=== PATIENT | female | born 1950 | race American Indian/Alaskan Native ===

== ENCOUNTER 2016-08-03 06:15 | Day surgery (SDC) | payer OTHER ==
[2016-07-26 12:07] VITALS: BMI 27.6
[~2016-08-03 06:15] MED LIST: Lactated Ringer's 500 ML IV ONE; Phenylephrine 2.5% Opht Soln OD SCH; Tropicamide 1% Opht SOLUTION OD SCH
[2016-08-03] MEDS ORDERED: Lactated Ringer's 1,000 ML IV ONE (07:00)
[2016-08-03] MEDS ORDERED: Povidone Iodine Ophthalmic 5% Soln ONE (07:24)
[2016-08-03] MEDS ORDERED: Tetracaine 0.5% Ophth (OR ONLY) ONE (07:24)
[2016-08-03] MEDS ORDERED: Chondroitin/Hyaluronate Opth Syringe KIT (0.55 ml-0.5 ml) IO ONE (07:25)
[2016-08-03] MEDS ORDERED: Lidocaine 2% Inj (20ml) ONE (07:25)
[2016-08-03] MEDS ORDERED: Hyaluronidase Human, Recombi 150 U/ML VIAL ONE (07:25)
[2016-08-03] MEDS ORDERED: Midazolam 2 MG/2 ML VIAL ONE (07:52)
[2016-08-03] MEDS ORDERED: Propofol 10 mg/ml Inj (20 ML) ONE (08:13)
[2016-08-03] MEDS: Carbachol 0.01% IO ONE ×2 (08:18→08:33)
[2016-08-03] MEDS: Tobramycin/Dexamethasone OPHT OINT ONE ×2 (08:18→08:34)
[2016-08-03 10:38] VITALS: BP 157/61; PULSE 56; RESP 16; TEMP 97.4; O2SAT 98
--- NOTE | 2016-08-04 10:06 | OP ---
PROCEDURE DATE: 08/03/2016 PREOPERATIVE DIAGNOSIS: Nuclear mature cataract, right eye. POSTOPERATIVE DIAGNOSIS: Nuclear mature cataract, right eye. OPERATIVE PROCEDURE: Cataract extraction with lens implant. ATTENDING: Dr. Bro Layton ANESTHESIA: Retrobulbar block. COMPLICATIONS: None. PROCEDURE: The patient was brought to the operating room and properly identified. Anesthesia staff a dministered intravenous sedation and retrobulbar block was given to the surgical eye. The patient wa s then prepped and draped in the usual sterile fashion. Attention was turned to the surgical eye. A lid speculum was placed into interpalpebral fissure. Si tting temporally two paracentesis incisions were made. The anterior chamber was filled with viscoela stic and a triplanar clear corneal incision was made. Using a cystitome anterior capsular leaflet wa s created. Utrata forceps were used to create a continuous curvilinear capsulorrhexis. Balanced catherine t solution on a cannula was used to hydrodissect and hydrodelineate the lens. The lens was then phac oemulsified with no complications. Automated irrigation and aspiration was used to remove the cortex . Viscoelastic was used to deepen the anterior chamber. The lens was placed in the capsular bag. A utomated irrigation and aspiration was used to remove the viscoelastic. The anterior chamber was ivis led with Miochol. The wounds were hydrated with balanced salt solution. There was noted to be no le ak at the end of the case and the lens was well positioned. The lid speculum was removed. The eye w as given antibiotics and steroids and covered with a patch and shield. The patient was returned to [facility] recovery room in stable condition. Bro Layton MD cc: [phone] TT: 08/04/2016 10:06:15 en
== END 2016-08-03 10:15 | disposition home or self-care (01) ==
LOC: C.SDS 06:15
PROVIDERS: ATTEND Ophthalmology
DX: H25.11 Age-related nuclear cataract, right eye (principal)
CPT/HCPCS: 66984; 82948; J2250; J2704; J3010; J3470; J7120

== ENCOUNTER 2017-07-17 01:03 | Emergency (ER) | payer OTHER ==
[2017-07-17 01:04] VITALS: BMI 26.4
[2017-07-17 01:31] VITALS: O2SAT 100
[2017-07-17 02:00] LABS: BASO # 0.1 K/uL (0.0-0.2); BASO % 1.1 % (0.0-2.0); EOS # 0.2 K/uL (0.0-0.7); EOS % 1.8 % (0.0-4.0); HEMOGLOBIN 12.9 g/dL (11.0-16.0); LYMPH # 2.2 K/uL (1.0-4.3); LYMPH % 21.3 % (20.0-40.0); MEAN CELL VOLUME 83.8 fL (81.0-99.0); MEAN CORPUSCULAR HEMOGLOBIN 29.2 pg (27.0-31.0); MEAN CORPUSCULAR HGB CONC 34.8 g/dL (33.0-37.0); MEAN PLATELET VOLUME 10.6 fL (7.2-11.7); MONO % 9.4 % (0.0-10.0); NEUT # 6.8 K/uL (1.8-7.0); NEUT % 66.4 % (50.0-75.0); RBC 4.41 Mil/uL (3.80-5.20); RED CELL DISTRIBUTION WIDTH 13.9 % (11.5-14.5); WHITE BLOOD COUNT 10.3 K/uL (4.8-10.8)
--- NOTE | 2017-07-17 02:11 | C.PDOC ---
History Of Present Illness 67 y/o female with a history of migraines presents to the ED for a headache. Patient states the headache has lasted for several days along with intermittent chest pain. The headache feels like it's pounding associated with nausea and her eyes are bothered by light. She denies any recent fever, neck pain, focal weakness, visual disturbances, trouble with speech, or rashes. Of note, she saw her PMD today who gave her more blood pressure medication. PMD: Flo Hart Time Seen by Provider: 07/17/17 01:47 Chief Complaint (Nursing): Chest Pain History Per: Patient History/Exam Limitations: no limitations Onset/Duration Of Symptoms: Days Current Symptoms Are (Timing): Still Present Quality: "Pain" Recent travel outside of the [place]: No Past Medical History Vital Signs: Last Vital Signs Temp 98.4 F 07/17/17 04:38 Pulse 72 07/17/17 04:38 Resp 18 07/17/17 04:38 BP 142/74 07/17/17 04:38 Pulse Ox 100 07/17/17 04:38 - Medical History PMH: CHF, HTN, Hypercholesterolemia, Migraine Surgical History: No Surg Hx Family History: States: Unknown Family Hx - Social History Hx Tobacco Use: No Hx Alcohol Use: No Hx Substance Use: No - Immunization History Hx Influenza Vaccination: No Hx Pneumococcal Vaccination: No Review Of Systems Except As Marked, All Systems Reviewed And Found Negative. Physical Exam - Physical Exam Appears: No Acute Distress Skin: Normal Color, Warm, Dry Head: Atraumatic, Normacephalic Eye(s): bilateral: Normal Inspection, PERRL, EOMI Nose: Normal Throat: Normal Neck: Normal Cardiovascular: Rhythm Regular, No Murmur Respiratory: Normal Breath Sounds, No Decreased Breath Sounds Gastrointestinal/Abdominal: Normal Exam, Soft, No Tenderness Back: Normal Inspection, No CVA Tenderness, No Vertebral Tenderness Extremity: Normal ROM, No Pedal Edema, Capillary Refill (2+) Neurological/Psych: Oriented x3, Normal Motor, Normal Sensation, Other (2-12 nerves intact) Other Neurological Findings: No Other (no meningismus) ED Course And Treatment - Laboratory Results Result Diagrams: 07/17/17 01:50 07/17/17 01:50 ECG: Interpreted By Me, Viewed By Me ECG Rhythm: Sinus Rhythm (normal), Nonspecific Changes (ST changes) Interpretation Of ECG: left ventricular hypertrophy, no acute ischemia Rate From EC O2 Sat by Pulse Oximetry: 100 (RA) Pulse Ox Interpretation: Normal Medical Decision Making Medical Decision Making: Impression: Muscle tension headache. Will provide anti-nausea medication and analgesics. Initial Plan: * Head CT w/o contrast * EKG * Chest X-Ray * Toradol 30 mg IVP * Compazine [address] Results FINDINGS: Brain: Xtbi-en-jegckoot atrophy. No intracranial hemorrhage. No mass. Minimal encephalomalacia within right frontal region. Extensive decreased attenuation within periventricular/subcortical white matter. Probable chronic lacunar infarct about LEFT basal ganglia. No definite edema. Ventricles: No hydrocephalus. Bones/joints: No acute fracture. Soft tissues: Unremarkable. Vasculature: Atherosclerotic disease of intracranial arteries. Sinuses: No acute sinusitis. Mastoid air cells: No mastoid effusion. Orbits: Unremarkable as visualized. IMPRESSION: 1. Nonspecific white matter changes. Acute infarction may be CT occult within first 24 hours. If a focal deficit persists, consider followup CT or MRI for further evaluation. 2. Incidental/non-acute findings are described above. Scribe Attestation: Documented by Sybil Nichole acting as a scribe Crispin Ball MD. Scribe Attestation: All medical record entries made by the Scribe were at my direction and personally dictated by me. I have reviewed the chart and agree that the record accurately reflects my personal performance of the history, physical exam, medical decision making, and the department course for this patient. I have also personally directed, reviewed, and agree with the discharge instructions and disposition. Disposition - Disposition Referrals: [facility] [Outside] Disposition: HOME/ ROUTINE Disposition Time: 06:46 Condition: FAIR Prescriptions: Acetaminophen/Butalbital/Caf [Fioricet] 1 tab PO TID PRN #12 tab PRN Reason: Pain, Mild (1-3) Instructions: Tension Headache Forms: [facility] (Venezuelan) Print Language: DUTCH - Clinical Impression Clinical Impression: Tension headache
[2017-07-17 02:14] LABS: ALB/GLOB RATIO 1.2 (1.0-2.1); ALBUMIN 4.9 g/dL (3.5-5.0); CALCIUM 10.5 mg/dl (8.6-10.4)
[2017-07-17 02:26] LABS: CK-MB 0.77 ng/mL (0.0-3.38); TROPONIN I 0.032 ng/mL (0.00-0.120)
[2017-07-17 03:31] VITALS: RESP 18
--- NOTE | 2017-07-17 03:57 | CT ---
EXAM: CT Head Without Intravenous Contrast CLINICAL HISTORY: 67 years old, female; Pain; Headache; Patient HX: 04-02-17 images sent TECHNIQUE: Axial computed tomography images of the head/brain without intravenous contrast. All CT scans at this facility use one or more dose reduction techniques, viz.: automated exposure control; ma/kV adjustment per patient size (including targeted exams where dose is matched to indication; i.e. head); or iterative reconstruction technique. Coronal and sagittal reformatted images were created and reviewed. COMPARISON: CT - HEAD W/O CONTRAST 2017-04-02 08:08 FINDINGS: Brain: Rgcb-kq-bimsrnxx atrophy. No intracranial hemorrhage. No mass. Minimal encephalomalacia within right frontal region. Extensive decreased attenuation within periventricular/subcortical white matter. Probable chronic lacunar infarct about LEFT basal ganglia. No definite edema. Ventricles: No hydrocephalus. Bones/joints: No acute fracture. Soft tissues: Unremarkable. Vasculature: Atherosclerotic disease of intracranial arteries. Sinuses: No acute sinusitis. Mastoid air cells: No mastoid effusion. Orbits: Unremarkable as visualized. IMPRESSION: 1. Nonspecific white matter changes. Acute infarction may be CT occult within first 24 hours. If a focal deficit persists, consider followup CT or MRI for further evaluation. 2. Incidental/non-acute findings are described above.
[2017-07-17 04:39] VITALS: BP 142/74; PULSE 72; TEMP 98.4
--- NOTE | 2017-07-17 08:21 | RAD ---
Chest x-ray single frontal view History: Chest pain. Comparison: 06/27/2016 Findings: Biapical pleural thickening with upper lobe granulomatous changes. Radiopaque calcifications seen at the level of the right lung apex/right lateral neck. Diffuse increased interstitial lung markings bilaterally. Mild nodularity at the lateral aspect of the right lung base. Tortuous ectatic aorta. Mild cardiomegaly. Degenerative changes in the spine and shoulders. Impression: Biapical pleural thickening with upper lobe granulomatous changes. Radiopaque calcifications seen at the level of the right lung apex/right lateral neck. Diffuse increased interstitial lung markings bilaterally. Mild nodularity at the lateral aspect of the right lung base. Tortuous ectatic aorta. Mild cardiomegaly. Degenerative changes in the spine and shoulders.
--- NOTE | 2017-07-18 19:24 | CARD ---
APPROVED REPORT EKG Measurement Heart [id number] <Conclusion> Normal sinus rhythm Possible Left atrial enlargement Left ventricular hypertrophy Nonspecific T wave abnormality Prolonged QT Abnormal ECG
== END 2017-07-17 04:44 | disposition home or self-care (01) ==
LOC: C.ER 01:03
DX: G44.209 Tension-type headache, unspecified, not intractable (principal)
CPT/HCPCS: 70450; 71045; 80053; 83880; 84484; 85025; 93005; 96374; 96375; 99285; J0780; J1885

== ENCOUNTER 2017-08-21 18:17 | Emergency (ER) | payer OTHER ==
[2017-08-21 18:17] VITALS: BMI 26.4
[2017-08-21] MEDS ORDERED: Sodium Chloride 0.9% 500 ML IV ONE (19:04)
[2017-08-21] MEDS ORDERED: Sodium Chloride 0.9% 1,000 ML ONE (19:19)
[2017-08-21 19:39] LABS: BASO # 0.1 K/uL (0.0-0.2); BASO % 0.8 % (0.0-2.0); EOS # 0.1 K/uL (0.0-0.7); EOS % 1.2 % (0.0-4.0); LYMPH # 2.4 K/uL (1.0-4.3); LYMPH % 22.5 % (20.0-40.0); MEAN CELL VOLUME 83.5 fL (81.0-99.0); MEAN CORPUSCULAR HEMOGLOBIN 27.8 pg (27.0-31.0); MEAN CORPUSCULAR HGB CONC 33.3 g/dL (33.0-37.0); MEAN PLATELET VOLUME 10.4 fL (7.2-11.7); MONO # 0.8 K/uL (0.0-0.8); MONO % 7.3 % (0.0-10.0); NEUT # 7.2 K/uL (1.8-7.0); NEUT % 68.2 % (50.0-75.0); NRBC % 0.2 % (0.0-2.0); RBC 4.33 Mil/uL (3.80-5.20); RED CELL DISTRIBUTION WIDTH 13.6 % (11.5-14.5); WHITE BLOOD COUNT 10.5 K/uL (4.8-10.8)
[2017-08-21 19:44] LABS: SQUAMOUS EPITHIAL < 1 /hpf (0-5); URINE BACTERIA RARE (<OCC); URINE BILIRUBIN NEGATIVE (NEGATIVE); URINE BLOOD NEGATIVE (NEGATIVE); URINE CLARITY Clear (Clear); URINE COLOR Yellow (YELLOW); URINE GLUCOSE (UA) NORMAL (Normal); URINE LEUKOCYTE ESTERASE TRACE Leu/uL (Negative); URINE PROTEIN 2+ mg/dL (NEGATIVE)
[2017-08-21 19:51] LABS: ALB/GLOB RATIO 1.3 (1.0-2.1); ALBUMIN 4.7 g/dL (3.5-5.0); CALCIUM 9.8 mg/dl (8.6-10.4)
[2017-08-21 20:03] LABS: TROPONIN I 0.021 ng/mL (0.00-0.120)
--- NOTE | 2017-08-21 20:18 | C.PDOC ---
Time Seen by Provider: 08/21/17 18:38 Chief Complaint (Nursing): GI Problem History Per: Patient, Family Onset/Duration Of Symptoms: Days (3) Current Symptoms Are (Timing): Still Present Severity: Moderate Associated Symptoms: Nausea, Vomiting, Loss Of Appetite Exacerbating Factors: Food Alleviating Factors: None Additional History Per: Prior Records Past Medical History Reviewed: Historical Data, Nursing Documentation, Vital Signs Vital Signs: Last Vital Signs Temp 99.2 F 08/21/17 18:20 Pulse 67 08/21/17 18:20 Resp 20 08/21/17 18:20 BP 197/74 H 08/21/17 18:20 Pulse Ox 99 08/21/17 18:20 - Medical History PMH: CHF, HTN, Hypercholesterolemia, Migraine Surgical History: No Surg Hx Family History: States: Unknown Family Hx - Social History Hx Tobacco Use: No Hx Alcohol Use: No Hx Substance Use: No - Immunization History Hx Influenza Vaccination: No Hx Pneumococcal Vaccination: No Review Of Systems Except As Marked, All Systems Reviewed And Found Negative. Constitutional: Negative for: Fever, Weakness Cardiovascular: Negative for: Chest Pain Respiratory: Negative for: Shortness of Breath Gastrointestinal: Positive for: Nausea, Vomiting. Negative for: Abdominal Pain , Diarrhea, Melena, Hematochezia, Hematemesis Musculoskeletal: Negative for: Neck Pain, Back Pain Skin: Negative for: Rash Neurological: Positive for: Headache. Negative for: Weakness, Numbness Physical Exam - Physical Exam Appears: Non-toxic, No Acute Distress Skin: Normal Color, Warm, Dry Head: Atraumatic, Normacephalic Eye(s): bilateral: Normal Inspection, PERRL, EOMI Neck: Normal ROM, Supple Cardiovascular: Rhythm Regular Respiratory: Normal Breath Sounds, No Accessory Muscle Use Gastrointestinal/Abdominal: Soft, No Tenderness Back: No CVA Tenderness Extremity: Normal ROM Neurological/Psych: Oriented x3, Normal Motor, Normal Sensation ED Course And Treatment - Laboratory Results Result Diagrams: 08/21/17 19:26 08/21/17 19:26 Interpretation Of Abnormal: Mild renal insufficiency O2 Sat by Pulse Oximetry: 99 Pulse Ox Interpretation: Normal Progress Note: Pt is now asymptomatic and wants to go home. Tolerating PO in the ED. Reassessment Condition: Improved Progress - Interventions Interventions:: Observation, Intravenous fluid - Medications Administered Intravenous: Antiemetic - Data Reviewed Data Reviewed: Lab, Old records - Patient Status Patient status: Mostly improved - Continuity of Care Discussed patient case with:: Patient, Family-HIPPA compliant, ED Nurse - Patient Plan Patient Plan: Discharge, F/U with PCP, Continue present meds Disposition Counseled Patient/Family Regarding: Studies Performed, Diagnosis, Need For Followup, Rx Given - Disposition Referrals: [facility] [Outside] Disposition: HOME/ ROUTINE Disposition Time: 20:20 Condition: IMPROVED Additional Instructions: Follow up with your doctor or in the clinic. Return to the ER if you develop weakness, numbness, chest pain, abdominal pain, worsening of symptoms or if you have any other concerns. Prescriptions: Metoclopramide [Reglan] 1 tab PO TID PRN #15 tab PRN Reason: Nausea/Vomiting Instructions: Nausea and Vomiting, Adult (DC) - Clinical Impression Clinical Impression: Nausea & vomiting
[2017-08-21 20:30] VITALS: BP 156/74; PULSE 79; RESP 16; TEMP 98; O2SAT 98
== END 2017-08-21 20:32 | disposition home or self-care (01) ==
LOC: C.ER 18:17
DX: R11.2 Nausea with vomiting, unspecified (principal)
CPT/HCPCS: 80053; 81001; 83690; 83735; 84484; 85025; 96374; 96375; 99285; C9113; J2765; J7040

== ENCOUNTER 2018-05-04 17:08 | Observation (INO) | payer OTHER ==
[2018-05-04 17:08] VITALS: BMI 26.4
[2018-05-04] MEDS ORDERED: Sodium Chloride 0.9% 1,000 ML IV ONE (18:35)
[2018-05-04 18:45] LABS: BASO # 0.1 K/uL (0.0-0.2); BASO % 0.8 % (0.0-2.0); EOS % 0.3 % (0.0-4.0); HEMOGLOBIN 11.6 g/dL (11.0-16.0); LYMPH # 1.4 K/uL (1.0-4.3); MEAN CELL VOLUME 85.3 fL (81.0-99.0); MEAN CORPUSCULAR HEMOGLOBIN 28.2 pg (27.0-31.0); MEAN PLATELET VOLUME 9.9 fL (7.2-11.7); MONO # 0.5 K/uL (0.0-0.8); MONO % 4.2 % (0.0-10.0); NEUT # 9.8 K/uL (1.8-7.0); NEUT % 82.7 % (50.0-75.0); RBC 4.12 Mil/uL (3.80-5.20); RED CELL DISTRIBUTION WIDTH 14.8 % (11.5-14.5); WHITE BLOOD COUNT 11.9 K/uL (4.8-10.8)
[2018-05-04 18:57] LABS: ALB/GLOB RATIO 1.4 (1.0-2.1); ALBUMIN 5.2 g/dL (3.5-5.0); CALCIUM 9.6 mg/dl (8.6-10.4)
[2018-05-04 19:03] LABS: SQUAMOUS EPITHIAL < 1 /hpf (0-5); URINE BILIRUBIN NEGATIVE (NEGATIVE); URINE BLOOD NEGATIVE (NEGATIVE); URINE CLARITY Clear (Clear); URINE COLOR Straw (YELLOW); URINE GLUCOSE (UA) NORMAL (Normal); URINE LEUKOCYTE ESTERASE TRACE Leu/uL (Negative); URINE PROTEIN 1+ mg/dL (NEGATIVE); URINE UROBILINOGEN NORMAL mg/dL (0.2-1.0)
[2018-05-04 19:10] LABS: TROPONIN I 0.016 ng/mL (0.00-0.120)
--- NOTE | 2018-05-04 19:15 | C.PDOC ---
History Of Present Illness 68 year old female presents to the emergency department accompanied by granddaughter for evaluation of chest pain and generalized weakness for the last two weeks. Patient traveled to [facility] and returned to the [place] at the end of March. Patient's granddaughter reports symptoms of cough, shaking, and vomiting. Patient last vomited at 3PM today. Patient was evaluated by cardiology in the clinic but according to the granddaughter, the cardiology states that he cannot treat her until she eats, patient refuses to eat due to vomiting. Patient denies history of smoking and drinking. Despite Creole translation from granddaughter, patient is a poor historian. Time Seen by Provider: 05/04/18 17:38 Chief Complaint (Nursing): GI Problem History Per: Family History/Exam Limitations: language barrier Onset/Duration Of Symptoms: Other (two weeks) Current Symptoms Are (Timing): Still Present Quality: "Pain" Past Medical History Reviewed: Historical Data, Nursing Documentation, Vital Signs Vital Signs: Last Vital Signs Temp 98.9 F 05/04/18 18:09 Pulse 109 H 05/04/18 18:09 Resp 16 05/04/18 18:09 BP 189/90 H 05/04/18 18:09 Pulse Ox 95 05/04/18 18:09 - Medical History PMH: CHF, HTN, Hypercholesterolemia, Migraine Surgical History: No Surg Hx Family History: States: No Known Family Hx - Social History Hx Tobacco Use: No Hx Alcohol Use: No Hx Substance Use: No - Immunization History Hx Tetanus Toxoid Vaccination: No Hx Influenza Vaccination: No Hx Pneumococcal Vaccination: No Review Of Systems Except As Marked, All Systems Reviewed And Found Negative. Constitutional: Positive for: Chills, Weakness. Negative for: Fever Cardiovascular: Positive for: Chest Pain Gastrointestinal: Positive for: Vomiting. Negative for: Abdominal Pain Physical Exam - Physical Exam Appears: Non-toxic, No Acute Distress Skin: Normal Color, Warm, Dry Head: Atraumatic, Normacephalic Eye(s): bilateral: Normal Inspection, PERRL, EOMI Nose: Normal Oral Mucosa: Moist Neck: Normal, Supple Chest: Symmetrical, No Tenderness Cardiovascular: Rhythm Regular (tachycardic), Murmur (systolic) Respiratory: Normal Breath Sounds, No Rales, No Rhonchi, No Wheezing Gastrointestinal/Abdominal: Soft, No Tenderness Extremity: Normal ROM Neurological/Psych: Oriented x3, Normal Speech, Normal Cognition ED Course And Treatment - Laboratory Results Result Diagrams: 05/04/18 18:42 05/04/18 18:42 Lab Results: D-Dimer, Quantitative < 200 ng/mlDDU (0-243) 05/04/18 18:42 Troponin I 0.0160 ng/mL (0.00-0.120) 05/04/18 18:42 NT-Pro-B Natriuret Pep 332 pg/mL (0-900) 05/04/18 18:42 Total Bilirubin 0.7 mg/dL (0.2-1.3) 05/04/18 18:42 AST 16 U/L (14-36) 05/04/18 18:42 ALT 8 U/L (9-52) L 05/04/18 18:42 Alkaline Phosphatase 63 U/L (38-126) 05/04/18 18:42 Total Protein 8.9 g/dL (6.3-8.3) H 05/04/18 18:42 Albumin 5.2 g/dL (3.5-5.0) H 05/04/18 18:42 Globulin 3.7 gm/dL (2.2-3.9) 05/04/18 18:42 Albumin/Globulin Ratio 1.4 (1.0-2.1) 05/04/18 18:42 Lipase 178 U/L (23-300) 05/04/18 18:42 Interpretation Of ECG: Sinus tachycardia at 120bpm, LVH, normal intervals, n ormal axis. O2 Sat by Pulse Oximetry: 95 (RA) Pulse Ox Interpretation: Normal Medical Decision Making Medical Decision Making: Plan: EKG Chemistry Bloodwork CXR NaCl IV Fluids Urinalysis Disposition - Disposition - Scribe Statement The provider has reviewed the documentation as recorded by the Scribe (Denys Sykes) Provider Attestation: All medical record entries made by the Scribe were at my direction and personally dictated by me. I have reviewed the chart and agree that the record accurately reflects my personal performance of the history, physical exam, medical decision making, and the department course for this patient. I have also personally directed, reviewed, and agree with the discharge instructions and disposition.
--- NOTE | 2018-05-04 20:54 | CP.PCM.HP ---
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 Pt describes the pain as a nonradiating pressure sensation that makes her "not want to eat". She endorses NBNB vomiting for the past few days with her last episode being earlier this afternoon. She denies any active vomiting in the ED. She also endorses 1 day of nonbloody diarrhea. Patient states she has also been very dizzy, has unsteady gait and uses objects/mercado around her to ambulate at home. She feels like the room is spinning and endorses headaches. No fevers/chills, palpitations, sob. She denies any recent illnesses or sick contacts. She last traveled to [facility] in August 2017 and came back to the on 03/05. She endorses nausea during the trip but denied vomiting, chest pain, or abdominal pain during that time. Of note, patient is a patient of [facility] and was evaluated yesterday for similar conditions. However, she states symptoms did not improve, prompting her to come to the ED. 12 pt ROS reviewed and otherwise negative. PMHx: CHF, HTN, HLD, migraines PSHx: None Allergies: NKDA Home Meds: as per chart Family Hx: Mother--HTN, [place] Social Hx: denies any alcohol, tobacco, or illicit drug use. Former heavy smoker in her 20s. PMD: Clinic Present on Admission - Present on Admission Any Indicators Present on Admission: No Review of Systems - Review of Systems All systems: reviewed and no additional remarkable complaints except Review of Systems: as per HPI Past Patient History - Infectious Disease Hx of Infectious Diseases: None - Past Medical History & Family History Past Medical History?: Yes - Past Social History Smoking Status: Never Smoked - CARDIAC Hx Congestive Heart Failure: Yes Hx Hypercholesterolemia: Yes Hx Hypertension: Yes - PULMONARY Hx Respiratory Disorders: No - NEUROLOGICAL Hx Migraine: Yes - HEENT Hx HEENT Problems: Yes Hx Cataracts: Yes - ENDOCRINE/METABOLIC Hx Endocrine Disorders: Yes Hx Diabetes Mellitus Type 2: Yes - PSYCHIATRIC Hx Substance Use: No - SURGICAL HISTORY Hx Surgeries: Yes Hx Cataract Extraction: Yes (LEFT EYE WITH IOL IMPLANT) Other/Comment: sugery done on her head(long time ago) - ANESTHESIA Hx Anesthesia: Yes Hx Anesthesia Reactions: No Meds Allergies/Adverse Reactions: Allergies Allergy/AdvReac Type Severity Reaction Status Date / Time No Known Allergies Allergy Verified 05/04/18 17:24 Physical Exam - Constitutional Appears: Non-toxic, No Acute Distress - Head Exam Head Exam: ATRAUMATIC, NORMAL INSPECTION, NORMOCEPHALIC - Eye Exam Eye Exam: EOMI, Normal appearance, Nystagmus (slight horizontal nystagmus), PERRL Pupil Exam: NORMAL ACCOMODATION - ENT Exam ENT Exam: Mucous Membranes Dry, Normal Exam - Neck Exam Neck exam: Positive for: Full Rom, Normal Inspection. Negative for: Tenderness - Respiratory Exam Respiratory Exam: Clear to Auscultation Bilateral, NORMAL BREATHING PATTERN. absent: Accessory Muscle Use, Rales, Rhonchi, Wheezes, Respiratory Distress, Stridor - Cardiovascular Exam Cardiovascular Exam: Tachycardia, +S1, +S2, Systolic Murmur - GI/Abdominal Exam GI & Abdominal Exam: Normal Bowel Sounds, Soft, Tenderness (mild epigastric TTP). absent: Distended, Firm, Guarding, Rebound, Rigid - Extremities Exam Extremities exam: Positive for: normal capillary refill, normal inspection, pedal pulses present. Negative for: calf tenderness, joint swelling, pedal edema - Back Exam Back exam: NORMAL INSPECTION - Neurological Exam Neurological exam: Abnormal Gait, Alert, CN II-XII Intact, Oriented x3 Additional comments: wide-based gait, very unsteady on feet requiring support - Expanded Neurological Exam Expanded Speech: Fluid Speech Cranial nerves: EOM's Intact: Normal, Facial Palsey w/Forehead Movement: Normal, Facial Palsey w/o Forehead Movement: Normal, Facial Sensation: Normal, Tongue Deviation: Normal Cerebellar Function: Heel to Pham: Abnormal Left, Abnormal Right Upper motor neuron: Babinski Sign: Normal, Pronator Drift: Normal - Psychiatric Exam Psychiatric exam: Normal Affect, Normal Mood - Skin Skin Exam: Dry, Intact, Normal Color, Warm Results - Vital Signs Recent Vital Signs: Last Vital Signs Temp 98.1 F 05/04/18 19:29 Pulse 100 H 05/04/18 19:29 Resp 14 05/04/18 19:29 BP 136/78 05/04/18 19:29 Pulse Ox 100 05/04/18 19:29 - Labs Result Diagrams: 05/04/18 18:42 05/04/18 18:42 Labs: Laboratory Results - last 24 hr 05/04/18 05/04/18 05/04/18 18:42 18:42 18:42 WBC 11.9 H RBC 4.12 Hgb 11.6 Hct 35.1 MCV 85.3 MCH 28.2 MCHC 33.0 RDW 14.8 H Plt Count 242 MPV 9.9 Neut % (Auto) 82.7 H Lymph % (Auto) 12.0 L [place] % (Auto) 4.2 Eos % (Auto) 0.3 Baso % (Auto) 0.8 Neut # (Auto) 9.8 H Lymph # (Auto) 1.4 [place] # (Auto) 0.5 Eos # (Auto) 0.0 Baso # (Auto) 0.1 D-Dimer, Quantitative < 200 Sodium 138 Potassium 4.0 Chloride 98 Carbon Dioxide 25 Anion Gap 19 BUN 38 H Creatinine 1.7 H Est GFR ( Amer) 36 Est GFR (Non-Af Amer) 30 Random Glucose 107 H D Calcium 9.6 Total Bilirubin 0.7 AST 16 ALT 8 L Alkaline Phosphatase 63 Troponin I 0.0160 NT-Pro-B Natriuret Pep 332 Total Protein 8.9 H Albumin 5.2 H Globulin 3.7 Albumin/Globulin Ratio 1.4 Lipase 178 Urine Color Urine Clarity Urine pH Ur Specific [place] Urine Protein Urine Glucose (UA) Urine Ketones Urine Blood Urine Nitrate Urine Bilirubin Urine Urobilinogen Ur Leukocyte Esterase Urine WBC (Auto) Urine RBC (Auto) Ur Squamous Epith Cells 05/04/18 18:58 WBC RBC Hgb Hct MCV MCH MCHC RDW Plt Count MPV Neut % (Auto) Lymph % (Auto) [place] % (Auto) Eos % (Auto) Baso % (Auto) Neut # (Auto) Lymph # (Auto) [place] # (Auto) Eos # (Auto) Baso # (Auto) D-Dimer, Quantitative Sodium Potassium Chloride Carbon Dioxide Anion Gap BUN Creatinine Est GFR ( Amer) Est GFR (Non-Af Amer) Random Glucose Calcium Total Bilirubin AST ALT Alkaline Phosphatase Troponin I NT-Pro-B Natriuret Pep Total Protein Albumin Globulin Albumin/Globulin Ratio Lipase Urine Color Straw Urine Clarity Clear Urine pH 7.0 Ur Specific [place] 1.002 L Urine Protein 1+ H Urine Glucose (UA) Normal Urine Ketones Negative Urine Blood Negative Urine Nitrate Negative Urine Bilirubin Negative Urine Urobilinogen Normal Ur Leukocyte Esterase Trace Urine WBC (Auto) 1 Urine RBC (Auto) < 1 Ur Squamous Epith Cells < 1 Assessment & Plan - Assessment and Plan (Free Text) Assessment: 68 year old Citizen [place] female with PMHx of CHF, HTN, HLD presenting to ED with generalized weakness, nausea/vomiting, dizziness, mild epigastric pain x 2weeks. Wide-based gait, slight nystagmus, abnormal heel to pham testing on neuro exam, r/o CVA. Plan: Dizziness, nausea/vomiting, weakness--r/o CVA -generalized sxs for prolonged period of time -epigastric pain very mild, possibly 2/2 vomiting/retching, less likely GI etiology -lipase wnl -lipid panel wnl -CT head (07/2017): Minimal encephalomalacia within R frontal region. Probable chronic lacunar infarct about L basal ganglia. Atherosclerotic dz of intracranial vessels -Brain MRI (2015): chronic R frontal and b/l thalamic infarcts -CT head w/o contrast -f/u carotid dopplers, MRI in AM -neuro checks q4h -ASA 81 mg PO daily -Crestor 5 mg PO HS Atypical chest pain, r/o ACS -trop x 1 negative, f/u serial troponins -CXR: no acute findings, f/u official read -EKG: sinus tachycardia @ 120 bpm, LVH -TSH/free T4 -A1C -lipid panel ALEXANDRE -likely 2/2 volume loss -1/2 NS @ 75cc/hr Hx of CHF -BNP wnl -ECHO (08/2016): EF 30-35%, moderate concentric LVH -f/u repeat echo HTN -restart home meds -Lisinopril 40 mg PO daily: hold given elevated Cr -Norvasc 10 mg PO daily -Lopressor 100 mg PO daily -Hydralazine 100 mg PO TID HLD -lipid panel wnl -Crestor 5 mg PO HS DM -home meds held -f/u A1C -no ISS for now given BG level -accuchecks ACHS -hypoglycemic protocol PPx, Diet, Disposition -DVT ppx: scds, heparin 500 units sc q8h -GI ppx: protonix 40 IVP daily -Diet: HHD soft -PT on board Case discussed with Dr. Ajay aHtch DO, PGY-1
[2018-05-04] MEDS ORDERED: Glucagon Recombinant 1 mg Inj IM PRN (21:07)
[2018-05-04] MEDS ORDERED: Dextrose 50% SYRINGE Inj (50 ml) IV PRN (21:07)
[2018-05-04] MEDS ORDERED: (Novolin R) Insulin Human Regular 100 units/ml vial SC SCH (22:00)
[2018-05-04] MEDS ORDERED: Sodium Chloride 0.9% 1,000 ML IV SCH (22:30)
[2018-05-05] MEDS: Sodium Chloride 0.45% 1,000 ML IV SCH ×4 (01:02→21:35)
[2018-05-05 01:58] LABS: TROPONIN I 0.036 ng/mL (0.00-0.120)
[2018-05-05 02:00] LABS: CK-MB 0.69 ng/mL (0.0-3.38)
[2018-05-05 06:37] LABS: BASO # 0.1 K/uL (0.0-0.2); BASO % 1.1 % (0.0-2.0); EOS # 0.1 K/uL (0.0-0.7); EOS % 1.2 % (0.0-4.0); LYMPH # 1.6 K/uL (1.0-4.3); LYMPH % 23.9 % (20.0-40.0); MEAN CELL VOLUME 85.6 fL (81.0-99.0); MEAN CORPUSCULAR HEMOGLOBIN 28.3 pg (27.0-31.0); MEAN CORPUSCULAR HGB CONC 33.1 g/dL (33.0-37.0); MEAN PLATELET VOLUME 9.3 fL (7.2-11.7); MONO # 0.5 K/uL (0.0-0.8); MONO % 6.9 % (0.0-10.0); NEUT # 4.6 K/uL (1.8-7.0); NEUT % 66.9 % (50.0-75.0); RBC 3.54 Mil/uL (3.80-5.20); RED CELL DISTRIBUTION WIDTH 14.5 % (11.5-14.5); WHITE BLOOD COUNT 6.8 K/uL (4.8-10.8)
[2018-05-05 06:52] LABS: ALB/GLOB RATIO 1.4 (1.0-2.1); ALBUMIN 4.2 g/dL (3.5-5.0); CALCIUM 8.9 mg/dl (8.6-10.4)
[2018-05-05 07:19] LABS: CK-MB 0.58 ng/mL (0.0-3.38); TROPONIN I 0.04 ng/mL (0.00-0.120)
--- NOTE | 2018-05-05 08:07 | CP.PCM.PN ---
<Tor Fontenot - Last Filed: 05/05/18 15:14> Subjective - Date & Time of Evaluation Date of Evaluation: 05/05/18 Time of Evaluation: 08:07 - Subjective Subjective: Progress note for Hospitalist service Patient seen and examined at bedside. Nurse Emmy and railroad crossing protection maintainer used to obtain information from patient. She states she no longer has any abdominal pain. She states she was able to tolerate breakfast this morning without nausea, vomiting. She last had an episode of diarrhea overnight at midnight, nonbloody. She denies current headache, dizziness, chest pain, shortness of breath, palpitations, cough. She has never had a mammogram, colonoscopy or Pap smear before. She states she has only had one sexual partner in her lifetime, for 10 years, for 4 years. Objective - Vital Signs/Intake and Output Vital Signs (last 24 hours): Temp Pulse Resp BP Pulse Ox 98.4 F 84 20 126/63 99 05/04/18 23:30 05/04/18 23:30 05/04/18 23:30 05/04/18 23:30 05/05/18 04:27 - Medications Medications: Current Medications Amlodipine Besylate (Norvasc) 10 mg PO DAILY [facility] Aspirin (Aspirin Chewable) 81 mg PO DAILY [facility] Dextrose (Dextrose 50% Inj) 0 ml IV STAT PRN; Protocol PRN Reason: Hypoglycemia Protocol Dextrose (Glutose 15) 0 gm PO ONCE PRN; Protocol PRN Reason: Hypoglycemia Protocol Glucagon (Glucagen Diagnostic Kit) 0 mg IM STAT PRN; Protocol PRN Reason: Hypoglycemia Protocol Heparin Sodium (Porcine) (Heparin) 5,000 units SC Q8 [facility] Last Admin: 05/05/18 06:06 Dose: 5,000 units Hydralazine HCl (Apresoline) 100 mg PO TID [facility] Dextrose (Dextrose 5% In Water 1000 Ml) 1,000 mls @ 0 mls/hr IV .Q0M PRN; Protocol PRN Reason: Hypoglycemia Protocol Sodium Chloride (Sodium Chloride 0.45%) 1,000 mls @ 75 mls/hr IV .[id number] [facility] Last Admin: 05/05/18 06:19 Dose: 75 mls/hr Influenza Virus Vaccine (Flucelvax Quad [id number] Syr) 60 mcg IM .ONCE ONE Stop: 05/05/18 10:01 Metoprolol Tartrate (Lopressor) 100 mg PO DAILY [facility] Pneumococcal Polyvalent Vaccine (Pneumovax 23 Vaccine) 0.5 ml IM .ONCE ONE Stop: 05/05/18 10:01 Rosuvastatin Calcium (Crestor) 5 mg PO HS [facility] Last Admin: 05/04/18 21:47 Dose: 5 mg - Labs Labs: 05/05/18 06:33 05/05/18 06:33 - Constitutional Appears: Well, Non-toxic, No Acute Distress - Head Exam Head Exam: ATRAUMATIC, NORMOCEPHALIC - Eye Exam Eye Exam: EOMI, PERRL. absent: Nystagmus, Scleral icterus - ENT Exam ENT Exam: Mucous Membranes Moist - Neck Exam Neck Exam: Full ROM. absent: Lymphadenopathy, Tenderness, Thyromegaly - Respiratory Exam Respiratory Exam: Clear to Ausculation Bilateral, NORMAL BREATHING PATTERN. absent: Rales, Rhonchi, Wheezes, Respiratory Distress, Stridor - Cardiovascular Exam Cardiovascular Exam: REGULAR RHYTHM, +S1, +S2. absent: Gallop, Rubs, Murmur - GI/Abdominal Exam GI & Abdominal Exam: Soft, Normal Bowel Sounds. absent: Distended, Firm, Guarding, Rigid, Tenderness, Organomegaly - Extremities Exam Extremities Exam: Normal Capillary Refill. absent: Calf Tenderness, Pedal Edema - Neurological Exam Neurological Exam: Alert, Awake, CN II-XII Intact, Oriented x3, Reflexes Normal (2+) Neuro motor strength exam: Left Upper Extremity: 5, Right Upper Extremity: 5, Left Lower Extremity: 5, Right Lower Extremity: 5 Additional comments: Gait slightly unsteady Negative pronator drift Negative Romberg - Psychiatric Exam Psychiatric exam: Normal Affect, Normal Mood - Skin Skin Exam: Dry, Intact, Warm Assessment and Plan - Assessment and Plan (Free Text) Assessment: 68 year old [place] female with PMHx of CHF, HTN, HLD presenting to ED with generalized weakness, nausea/vomiting, dizziness, mild epigastric pain x 2weeks. R/o CVA. Plan: Dizziness, nausea/vomiting, weakness, likely secondary to gastroenteritis -epigastric pain improved -lipase wnl -lipid panel TG 95 Cholesterol 191 LDL 118 HDL 57 - CT head age appropriate cerebral and cerebellar atrophy. moderate to severe chronic microvascular disease. - CT head (07/2017): Minimal encephalomalacia within R frontal region. Probable chronic lacunar infarct about L basal ganglia. Atherosclerotic dz of intracranial vessels - Repeat Brain MRI ordered. 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 Atypical chest pain, r/o ACS -trop x 3 negative -CXR: no acute findings, f/u official read -EKG: sinus tachycardia @ 120 bpm, LVH -TSH/free T4 -A1C 6.4 -lipid panel TG 95 Cholesterol 191 LDL 118 HDL 57 ALEXANDRE -BUN/Cr 31/1.6 -avoid nephrotoxic agents. History of CHF -BNP wnl -ECHO (08/2016): EF 30-35%, moderate concentric LVH -Repeat echo ordered, If ECHO reveals EF <30% considered discontinuing Norvasc. History of HTN -restart home meds -Lisinopril 40 mg PO daily: hold given elevated Cr -Norvasc 10 mg PO daily (consider discontinuing if ECHO reveals EF<30%) -Lopressor 50mg PO BID -Hydralazine 100 mg PO TID HLD -lipid panel TG 95 Cholesterol 191 LDL 118 HDL 57 -Crestor 5 mg PO HS DM -home meds held -f/u A1C -no ISS for now given BG level -accuchecks ACHS -hypoglycemic protocol PPx, Diet, Disposition -DVT ppx: scds, heparin 5000 units sc q8h -GI ppx: protonix 40 IVP daily -Diet: HHD soft -PT/OT on board Case discussed with Dr. Juan Manuel Fontenot, PGY1 <Juan Manuel Tate - Last Filed: 05/05/18 15:25> Objective - Vital Signs/Intake and Output Vital Signs (last 24 hours): Temp Pulse Resp BP Pulse Ox 99.3 F 72 20 119/60 100 05/05/18 07:00 05/05/18 13:15 05/05/18 07:00 05/05/18 13:15 05/05/18 12:03 Intake and Output: 05/05/18 05/05/18 06:59 18:59 Intake Total 1000 Balance 1000 - Medications Medications: Current Medications Amlodipine Besylate (Norvasc) 10 mg PO DAILY [facility] Last Admin: 05/05/18 09:43 Dose: 10 mg Aspirin (Aspirin Chewable) 81 mg PO DAILY [facility] Last Admin: 05/05/18 09:43 Dose: 81 mg Dextrose (Dextrose 50% Inj) 0 ml IV STAT PRN; Protocol PRN Reason: Hypoglycemia Protocol Dextrose (Glutose 15) 0 gm PO ONCE PRN; Protocol PRN Reason: Hypoglycemia Protocol Glucagon (Glucagen Diagnostic Kit) 0 mg IM STAT PRN; Protocol PRN Reason: Hypoglycemia Protocol Heparin Sodium (Porcine) (Heparin) 5,000 units SC Q8 [facility] Last Admin: 05/05/18 13:16 Dose: 5,000 units Hydralazine HCl (Apresoline) 100 mg PO TID [facility] Last Admin: 05/05/18 13:15 Dose: 100 mg Dextrose (Dextrose 5% In Water 1000 Ml) 1,000 mls @ 0 mls/hr IV .Q0M PRN; Protocol PRN Reason: Hypoglycemia Protocol Sodium Chloride (Sodium Chloride 0.45%) 1,000 mls @ 75 mls/hr IV .[id number] [facility] Last Admin: 05/05/18 14:26 Dose: Not Given Metoprolol Tartrate (Lopressor) 50 mg PO BID [facility] Rosuvastatin Calcium (Crestor) 5 mg PO HS [facility] Last Admin: 05/04/18 21:47 Dose: 5 mg - Labs Labs: 05/05/18 06:33 05/05/18 06:33 Attending/Attestation - Attestation I have personally seen and examined this patient.: Yes I have fully participated in the care of the patient.: Yes I have reviewed all pertinent clinical information, including history, physical exam and plan: Yes Notes (Text): 05/05/18 15:21 Patient was seen and examined with resident Dr. Fontenot along with Nurse Emmy who speaks Creole ([employer] Translation service could not be found at the time of exam). Care of this patient was gone over in detail with Dr. Fontenot. Exam for this patient was uremarkable as documented above. Her presenting complaints, other than the watery bowel movements, have essentially resolved Symptoms likely secondary to Gastroenteritis Anticipate discharge to home on 05/06/18 after MRI Brain and 2D Echocardiogram. Pending labs can be followed up through PMD as outpatient. Juan Manuel Tate D.O.
[2018-05-05] MEDS ORDERED: Pneumococcal 23-Valent Vaccine IM ONE (10:00)
[2018-05-05] MEDS ORDERED: Influenza Vaccine 60 mcg/0.5 mL SYR (4YR UP) IM ONE (10:00)
[2018-05-05 12:37] LABS: FOLATE > 20.0 ng/mL
--- NOTE | 2018-05-05 14:57 | RAD ---
Date of service: 05/04/2018 PROCEDURE: CHEST RADIOGRAPH, 1 VIEW HISTORY: chest pain COMPARISON: 07/17/2017 FINDINGS: LUNGS: Clear. PLEURA: No pneumothorax or pleural fluid seen. CARDIOVASCULAR: No aortic atherosclerotic calcification present. Normal. OSSEOUS STRUCTURES: No significant abnormalities. VISUALIZED UPPER ABDOMEN: Normal. OTHER FINDINGS: None. IMPRESSION: No active disease.
--- NOTE | 2018-05-05 15:53 | CT ---
Date of service: 05/05/2018 PROCEDURE: CT HEAD WITHOUT CONTRAST. HISTORY: ataxia, dizziness COMPARISON: 07/17/2017 TECHNIQUE: Axial computed tomography images were obtained through the head/brain without intravenous contrast. Radiation dose: Total exam DLP = 1070.34 mGy-cm. This CT exam was performed using one or more of the following dose reduction techniques: Automated exposure control, adjustment of the mA and/or kV according to patient size, and/or use of iterative reconstruction technique. FINDINGS: HEMORRHAGE: No intracranial hemorrhage. BRAIN: No mass effect or edema. Mild diffuse age-appropriate cerebral atrophy. Moderate to severe patchy and confluent periventricular, deep and subcortical white matter lucency consistent with microvascular white matter ischemic change. No evidence of acute infarct. VENTRICLES: Unremarkable. No hydrocephalus. CALVARIUM: Unremarkable. PARANASAL SINUSES: Unremarkable as visualized. No significant inflammatory changes. MASTOID AIR CELLS: Unremarkable as visualized. No inflammatory changes. OTHER FINDINGS: None. IMPRESSION: No intracranial mass, hemorrhage or evidence of acute infarct. Moderate to severe chronic white matter ischemic change peer The preliminary findings for this examination were reported by [facility] at 3:36 a.m. on 05/05/2018. There is concurrence of this report with the preliminary findings.
[2018-05-06 00:14] VITALS: RESP 20
[2018-05-06 07:49] LABS: BASO # 0.1 K/uL (0.0-0.2); EOS # 0.2 K/uL (0.0-0.7); EOS % 2.3 % (0.0-4.0); HEMOGLOBIN 10.6 g/dL (11.0-16.0); LYMPH # 1.7 K/uL (1.0-4.3); LYMPH % 22.1 % (20.0-40.0); MEAN CELL VOLUME 85.7 fL (81.0-99.0); MEAN CORPUSCULAR HEMOGLOBIN 28.6 pg (27.0-31.0); MEAN CORPUSCULAR HGB CONC 33.4 g/dL (33.0-37.0); MEAN PLATELET VOLUME 9.7 fL (7.2-11.7); MONO # 0.6 K/uL (0.0-0.8); MONO % 7.1 % (0.0-10.0); NEUT # 5.3 K/uL (1.8-7.0); NEUT % 67.5 % (50.0-75.0); RBC 3.71 Mil/uL (3.80-5.20); RED CELL DISTRIBUTION WIDTH 14.6 % (11.5-14.5); WHITE BLOOD COUNT 7.9 K/uL (4.8-10.8)
--- NOTE | 2018-05-06 07:57 | CP.PCM.DIS ---
Provider - Provider Date of Admission: 05/04/18 20:45 Attending physician: Mary Haider DO Consults: 05/05/18 16:35 Physician Consult Routine Comment: Consulting Provider: Sherita Duong Consulting Physician: Sherita Duong Reason for Consult: weakness, unsteady gait Time Spent in preparation of Discharge (in minutes): 35 Hospital Course - Lab Results Lab Results: Most Recent Lab Values WBC 7.9 K/uL (4.8-10.8) 05/06/18 07:39 RBC 3.71 Mil/uL (3.80-5.20) L 05/06/18 07:39 Hgb 10.6 g/dL (11.0-16.0) L 05/06/18 07:39 Hct 31.8 % (34.0-47.0) L 05/06/18 07:39 MCV 85.7 fL (81.0-99.0) 05/06/18 07:39 MCH 28.6 pg (27.0-31.0) 05/06/18 07:39 MCHC 33.4 g/dL (33.0-37.0) 05/06/18 07:39 RDW 14.6 % (11.5-14.5) H 05/06/18 07:39 Plt Count 212 K/uL (130-400) 05/06/18 07:39 MPV 9.7 fL (7.2-11.7) 05/06/18 07:39 Neut % (Auto) 67.5 % (50.0-75.0) 05/06/18 07:39 Lymph % (Auto) 22.1 % (20.0-40.0) 05/06/18 07:39 [place] % (Auto) 7.1 % (0.0-10.0) 05/06/18 07:39 Eos % (Auto) 2.3 % (0.0-4.0) 05/06/18 07:39 Baso % (Auto) 1.0 % (0.0-2.0) 05/06/18 07:39 Neut # (Auto) 5.3 K/uL (1.8-7.0) 05/06/18 07:39 Lymph # (Auto) 1.7 K/uL (1.0-4.3) 05/06/18 07:39 [place] # (Auto) 0.6 K/uL (0.0-0.8) 05/06/18 07:39 Eos # (Auto) 0.2 K/uL (0.0-0.7) 05/06/18 07:39 Baso # (Auto) 0.1 K/uL (0.0-0.2) 05/06/18 07:39 D-Dimer, Quantitative < 200 ng/mlDDU (0-243) 05/04/18 18:42 Sodium 140 mmol/L (132-148) 05/05/18 06:33 Potassium 4.4 mmol/L (3.6-5.2) 05/05/18 06:33 Chloride 105 mmol/L (98-107) 05/05/18 06:33 Carbon Dioxide 26 mmol/L (22-30) 05/05/18 06:33 Anion Gap 14 (10-20) 05/05/18 06:33 BUN 31 mg/dL (7-17) H 05/05/18 06:33 Creatinine 1.6 mg/dL (0.7-1.2) H 05/05/18 06:33 Est GFR ( Amer) 39 05/05/18 06:33 Est GFR (Non-Af Amer) 32 05/05/18 06:33 POC Glucose (mg/dL) 123 mg/dL (65-110) H 05/05/18 11:15 Random Glucose 95 mg/dL (65-105) 05/05/18 06:33 Hemoglobin A1c 6.4 % (4.2-6.5) 05/04/18 21:23 Calcium 8.9 mg/dl (8.6-10.4) 05/05/18 06:33 Phosphorus 4.2 mg/dL (2.5-4.5) 05/05/18 06:33 Magnesium 1.9 mg/dL (1.6-2.3) 05/05/18 06:33 Total Bilirubin 1.0 mg/dL (0.2-1.3) 05/05/18 06:33 AST 17 U/L (14-36) 05/05/18 06:33 ALT 7 U/L (9-52) L 05/05/18 06:33 Alkaline Phosphatase 42 U/L (38-126) 05/05/18 06:33 Total Creatine Kinase 38 U/L (30-135) 05/05/18 06:33 CK-MB (Mass) 0.58 ng/mL (0.0-3.38) 05/05/18 06:33 Troponin I 0.0400 ng/mL (0.00-0.120) 05/05/18 06:33 NT-Pro-B Natriuret Pep 332 pg/mL (0-900) 05/04/18 18:42 Total Protein 7.2 g/dL (6.3-8.3) 05/05/18 06:33 Albumin 4.2 g/dL (3.5-5.0) 05/05/18 06:33 Globulin 3.0 gm/dL (2.2-3.9) 05/05/18 06:33 Albumin/Globulin Ratio 1.4 (1.0-2.1) 05/05/18 06:33 Triglycerides 95 mg/dL (0-149) D 05/04/18 21:23 Cholesterol 191 mg/dL (0-199) 05/04/18 21:23 LDL Cholesterol Direct 118 mg/dL (0-129) 05/04/18 21:23 HDL Cholesterol 57 mg/dL (30-70) 05/04/18 21:23 Lipase 178 U/L (23-300) 05/04/18 18:42 Vitamin B12 353 pg/mL (239-931) 05/05/18 11:07 25-OH Vitamin D Total 51.3 NG/ML (30.0-100.0) 05/05/18 11:07 Folate > 20.0 ng/mL 05/05/18 11:07 Free T4 1.10 ng/dL (0.78-2.19) 05/04/18 21:42 TSH 3rd Generation 0.33 mIU/L (0.46-4.68) L 05/04/18 21:23 Urine Color Straw (YELLOW) 05/04/18 18:58 Urine Clarity Clear (Clear) 05/04/18 18:58 Urine pH 7.0 (5.0-8.0) 05/04/18 18:58 Ur Specific [place] 1.002 (1.003-1.030) L 05/04/18 18:58 Urine Protein 1+ mg/dL (NEGATIVE) H 05/04/18 18:58 Urine Glucose (UA) Normal mg/dL (Normal) 05/04/18 18:58 Urine Ketones Negative mg/dL (NEGATIVE) 05/04/18 18:58 Urine Blood Negative (NEGATIVE) 05/04/18 18:58 Urine Nitrate Negative (NEGATIVE) 05/04/18 18:58 Urine Bilirubin Negative (NEGATIVE) 05/04/18 18:58 Urine Urobilinogen Normal mg/dL (0.2-1.0) 05/04/18 18:58 Ur Leukocyte Esterase Trace [place]/uL (Negative) 05/04/18 18:58 Urine WBC (Auto) 1 /hpf (0-5) 05/04/18 18:58 Urine RBC (Auto) < 1 /hpf (0-3) 05/04/18 18:58 Ur Squamous Epith Cells < 1 /hpf (0-5) 05/04/18 18:58 Influenza Typ A,B (EIA) Negative for flu a/b (NEGATIVE) 05/05/18 14:00 Discharge Exam - Head Exam Head Exam: ATRAUMATIC, NORMOCEPHALIC Discharge Plan - Discharge Medications Prescriptions: hydrALAZINE [Apresoline] 100 mg PO TID #180 tab Metoprolol Tartrate 50 mg PO BID #60 tablet Rosuvastatin Calcium [Crestor] 5 mg PO HS #30 tab - Follow Up Plan Condition: GOOD Disposition: HOME/ ROUTINE Instructions: Heart Healthy Diet, Stroke (DC), Chest Pain (DC), Preventing Falls, Amlodipine, Metoprolol, Rosuvastatin Additional Instructions: Pt is medically stable for discharge home as per Dr. Haider. Pt should take Amlodipine 10 mg by mouth once a day at 8 am, Hydralazine 100 mg by mouth three times a day, Crestor 5 mg one tab by mouth every night, Aspirin 81 mg one tab by mouth every morning, Metoprolol 50 mg on tab by mouth once in the morning and once in the evening. Due to decreased kidney function at this time. Pt should NOT take Metformin 500 mg PO BID or Lisinopril 40 mg PO daily. Pt should follow up with [facility] within 1 week of discharge from hospital. Pt can follow up with Dr. Goodwin, neurology, as needed. Should symptoms worsen, please return to the nearest Emergency Department for further evaluation. Instructions explained to the pt, who understands and agrees with discharge plan. Referrals: [facility] at [facility] [Outside] Amandeep Kennedy DO [Doctor Osteopathy] - Feng Goodwin MD [Staff Provider] -
[2018-05-06 08:04] LABS: ALB/GLOB RATIO 1.4 (1.0-2.1); ALBUMIN 4.4 g/dL (3.5-5.0); CALCIUM 9.3 mg/dl (8.6-10.4)
[2018-05-06 08:20] VITALS: O2SAT 100
[2018-05-06 08:38] LABS: HEPATITIS B SURFACE AG Negative (NEGATIVE)
[2018-05-06 08:44] LABS: HEPATITIS A IGM NEGATIVE (NEGATIVE); HEPATITIS B CORE AB NEGATIVE (NEGATIVE)
[2018-05-06 08:56] LABS: HEPATITIS C ANTIBODY NEGATIVE (NEGATIVE)
--- NOTE | 2018-05-06 13:31 | MRI ---
Date of service: 05/06/2018 PROCEDURE: MRI BRAIN WITHOUT CONTRAST HISTORY: focal neuro deficits, headaches, dizziness, COMPARISON: CT head without contrast from 05/05/2018. TECHNIQUE: Multiplanar, multisequence MR images of the brain were obtained without intravenous contrast enhancement. FINDINGS: HEMORRHAGE: None DWI: No evidence of an acute or early subacute infarction. BRAIN PARENCHYMA: There is cystic encephalomalacia and gliosis in the right posterior frontal lobe. There are severe chronic microangiopathic changes. There is no mass, mass effect or abnormal extra-axial fluid collection. The midline sagittal structures are normal. For VENTRICLES: There is mild age-related global parenchymal volume loss and proportionate enlargement of the ventricles and cortical sulci. CRANIUM: There is normal bone marrow signal pattern. ORBITS: Grossly unremarkable. PARANASAL SINUSES/MASTOIDS: Predominantly clear. VASCULAR SYSTEM: There are normal signal voids in the larger intracranial arteries. OTHER FINDINGS: None. IMPRESSION: 1. No acute intracranial abnormality. 2. Right posterior frontal lobe cystic encephalomalacia and gliosis, a sequela of remote MCA territory infarction. 3. Severe chronic microangiopathic changes and mild age-related global parenchymal volume loss.
[2018-05-06] MEDS: Sodium Chloride 0.45% 1,000 ML IV SCH (13:52)
--- NOTE | 2018-05-06 14:55 | CP.PCM.CON ---
History of Present Illness - History of Present Illness History of Present Illness: Neurology Consultation Note: Consult requested by Dr. Haider Mrs. Sunshine Solomon is a 68-year-old [place] woman with a past medical history of CHF (EF 30-35%, ECHO 08/2016), HTN, HLD, migraines presenting to ED with worsening substernal/epigastric pain and generalized weakness with associated dry cough, nausea/vomiting, and decreased appetite for the past 2 weeks. She also complained of feeling light-headed and unsteady on her feet. According to the patient, she is not aware of having a stroke in the past, but CT scan of the head and MRI of the brain confirmed a chronic area of encephalomalacia in the right frontal lobe. Labs showed CKD and some dehydration. Neurology was consulted to assist with the management and care. Currently, the patient appears comfortable and states that she does feel light- headed. She does not currently have difficulty with her gait, but says that it is intermittent. Review of Systems - Constitutional Constitutional: As Per HPI - EENT Eyes: absent: As Per HPI, Blind Spots, Blurred Vision, Change in Vision, Decreased Night Vision, Diplopia, Discharge, Dry Eye, Exophthalmos, Floaters, Irritation, Itchy Eyes, Loss of Peripheral Vision, Pain, Photophobia, Requires Corrective Lenses, Sees Flashes, Spots in Vision, Tunnel Vision, Other Visual Disturbances, Loss of Vision, Other Ears: absent: As Per HPI, Decreased Hearing, Ear Discharge, Ear Pain, Tinnitus, Abnormal Hearing, Disequilibrium, Dizziness, Other Nose/Mouth/Throat: absent: As Per HPI, Epistaxis, Nasal Congestion, Nasal Discharge, Nasal Obstruction, Nasal Trauma, Nose Pain, Post Nasal Drip, Sinus Pain, Sinus Pressure, Bleeding Gums, Change in Voice, Dental Pain, Dry Mouth, Dysphagia, Halitosis, Hoarsness, Lip Swelling, Mouth Lesions, Mouth Pain, Odynophagia, Sore Throat, Throat Swelling, Tongue Swelling, Facial Pain, Neck Pain, Neck Mass, Other - Cardiovascular Cardiovascular: As Per HPI - Respiratory Respiratory: absent: As Per HPI, Cough, Dyspnea, Hemoptysis, Dyspnea on Exertio n, Wheezing, Snoring, Stridor, Pain on Inspiration, Chest Congestion, Excessive Mucous Production, Change in Mucous Color, Pain with Coughing, Other - Gastrointestinal Gastrointestinal: As Per HPI - Musculoskeletal Musculoskeletal: absent: As Per HPI, Abnormal Gait, Arthralgias, Atrophy, Back Pain, Deformity, Joint Swelling, Limited Range of Motion, Loss of Height, Muscle Cramps, Muscle Weakness, Myalgias, Neck Pain, Numbness, Radiating Pain into Limb, Stiffness, Tingling, Other - Integumentary Integumentary: absent: As Per HPI, Acne, Alopecia, Bleeding Lesions, Change in Hair, Change in Nails, Change in Pigmentation, Changing Lesions, Dry Skin, Erythema, Furuncle, Hirsutism, Lesions, New Lesions, Non-Healing Lesions, Photosensitivity, Pruritus, Rash, Skin Pain, Skin Ulcer, Sores, Striae, Swelling, Unusual Bruising, Wounds, Jaundice, Other - Neurological Neurological: As Per HPI - Psychiatric Psychiatric: absent: As Per HPI, Abnormal Sleep Pattern, Anhedonia, Anxiety, Auditory Hallucinations, Behavioral Changes, Change in Appetite, Change in Libido, Confusion, Depression, Difficulty Concentrating, Hallucinations, Homicidal Ideation, Hopelessness, Irritability, Memory Loss, Mood Swings, Panic Attacks, Paranoia, Suicidal Ideation, Visual Hallucinations, Tactile Hallucinations, Other - Endocrine Endocrine: absent: As Per HPI, Change in Body Appearance, Change in Libido, Cold Intolorance, Deepening of Voice, Excessive Sweating, Fatigue, Flushing, Heat Intolorance, Increase in Ring/Shoe/Hat Size, Palpitations, Polydipsia, Polyphagia, Polyuria, Other - Hematologic/Lymphatic Hematologic: absent: As Per HPI, Easy Bleeding, Easy Bruising, Lymphadenopathy, Other Past Patient History - Infectious Disease Hx of Infectious Diseases: None - Past Medical History & Family History Past Medical History?: Yes - Past Social History Smoking Status: Never Smoked - CARDIAC Hx Congestive Heart Failure: Yes Hx Hypercholesterolemia: Yes Hx Hypertension: Yes - PULMONARY Hx Respiratory Disorders: No - NEUROLOGICAL Hx Migraine: Yes - HEENT Hx HEENT Problems: Yes Hx Cataracts: Yes - ENDOCRINE/METABOLIC Hx Endocrine Disorders: Yes Hx Diabetes Mellitus Type 2: Yes - PSYCHIATRIC Hx Substance Use: No - SURGICAL HISTORY Hx Surgeries: Yes Hx Cataract Extraction: Yes (LEFT EYE WITH IOL IMPLANT) Other/Comment: sugery done on her head(long time ago) - ANESTHESIA Hx Anesthesia: Yes Hx Anesthesia Reactions: No Meds Allergies/Adverse Reactions: Allergies Allergy/AdvReac Type Severity Reaction Status Date / Time No Known Allergies Allergy Verified 05/04/18 17:24 - Medications Medications: Current Medications Amlodipine Besylate (Norvasc) 10 mg PO DAILY [facility] Last Admin: 05/06/18 09:33 Dose: 10 mg Aspirin (Aspirin Chewable) 81 mg PO DAILY [facility] Last Admin: 05/06/18 09:33 Dose: 81 mg Dextrose (Dextrose 50% Inj) 0 ml IV STAT PRN; Protocol PRN Reason: Hypoglycemia Protocol Dextrose (Glutose 15) 0 gm PO ONCE PRN; Protocol PRN Reason: Hypoglycemia Protocol Glucagon (Glucagen Diagnostic Kit) 0 mg IM STAT PRN; Protocol PRN Reason: Hypoglycemia Protocol Heparin Sodium (Porcine) (Heparin) 5,000 units SC Q8 [facility] Last Admin: 05/06/18 13:51 Dose: 5,000 units Hydralazine HCl (Apresoline) 100 mg PO TID [facility] Last Admin: 05/06/18 13:51 Dose: 100 mg Dextrose (Dextrose 5% In Water 1000 Ml) 1,000 mls @ 0 mls/hr IV .Q0M PRN; Protocol PRN Reason: Hypoglycemia Protocol Sodium Chloride (Sodium Chloride 0.45%) 1,000 mls @ 75 mls/hr IV .[id number] [facility] Last Admin: 05/06/18 13:52 Dose: 75 mls/hr Metoprolol Tartrate (Lopressor) 50 mg PO BID [facility] Last Admin: 05/06/18 09:33 Dose: 50 mg Rosuvastatin Calcium (Crestor) 5 mg PO HS [facility] Last Admin: 05/05/18 21:34 Dose: 5 mg Physical Exam - Constitutional Appears: Well - Head Exam Head Exam: ATRAUMATIC, NORMAL INSPECTION, NORMOCEPHALIC - Eye Exam Eye Exam: EOMI, Normal appearance, PERRL Pupil Exam: NORMAL ACCOMODATION, PERRL - ENT Exam ENT Exam: Mucous Membranes Moist, Normal Exam - Neck Exam Neck exam: Positive for: Normal Inspection - Respiratory Exam Respiratory Exam: Clear to Auscultation Bilateral, NORMAL BREATHING PATTERN - Cardiovascular Exam Cardiovascular Exam: REGULAR RHYTHM, +S1, +S2 - GI/Abdominal Exam GI & Abdominal Exam: Normal Bowel Sounds, Soft. absent: Tenderness - Extremities Exam Extremities exam: Positive for: normal inspection - Back Exam Back exam: NORMAL INSPECTION - Neurological Exam Neurological exam: Alert, CN II-XII Intact, Normal Gait, Oriented x3, Reflexes Normal - Psychiatric Exam Psychiatric exam: Normal Affect, Normal Mood - Skin Skin Exam: Dry, Intact, Normal Color, Warm Results - Vital Signs Recent Vital Signs: Last Vital Signs Temp 98.4 F 05/06/18 07:30 Pulse 75 05/06/18 07:30 Resp 20 05/06/18 07:30 BP 154/62 H 05/06/18 07:30 Pulse Ox 100 05/06/18 08:47 - Labs Result Diagrams: 05/06/18 07:39 05/06/18 07:39 Labs: Laboratory Results - last 24 hr 05/05/18 05/06/18 05/06/18 14:00 07:39 07:39 WBC 7.9 RBC 3.71 L Hgb 10.6 L Hct 31.8 L MCV 85.7 MCH 28.6 MCHC 33.4 RDW 14.6 H Plt Count 212 MPV 9.7 Neut % (Auto) 67.5 Lymph % (Auto) 22.1 [place] % (Auto) 7.1 Eos % (Auto) 2.3 Baso % (Auto) 1.0 Neut # (Auto) 5.3 Lymph # (Auto) 1.7 [place] # (Auto) 0.6 Eos # (Auto) 0.2 Baso # (Auto) 0.1 Sodium 137 Potassium 4.0 Chloride 103 Carbon Dioxide 26 Anion Gap 12 BUN 26 H Creatinine 1.7 H Est GFR ( Amer) 36 Est GFR (Non-Af Amer) 30 Random Glucose 103 Calcium 9.3 Phosphorus 3.9 Magnesium 2.1 Total Bilirubin 0.8 AST 16 ALT 13 Alkaline Phosphatase 49 Total Protein 7.5 Albumin 4.4 Globulin 3.1 Albumin/Globulin Ratio 1.4 Hepatitis A IgM Ab Hep Bs Antigen Hep B Core IgM Ab Hepatitis C Antibody HIV 1&2 Antibody Screen Influenza Typ A,B (EIA) Negative for flu a/b 05/06/18 05/06/18 07:39 07:39 WBC RBC Hgb Hct MCV MCH MCHC RDW Plt Count MPV Neut % (Auto) Lymph % (Auto) [place] % (Auto) Eos % (Auto) Baso % (Auto) Neut # (Auto) Lymph # (Auto) [place] # (Auto) Eos # (Auto) Baso # (Auto) Sodium Potassium Chloride Carbon Dioxide Anion Gap BUN Creatinine Est GFR ( Amer) Est GFR (Non-Af Amer) Random Glucose Calcium Phosphorus Magnesium Total Bilirubin AST ALT Alkaline Phosphatase Total Protein Albumin Globulin Albumin/Globulin Ratio Hepatitis A IgM Ab Negative Hep Bs Antigen Negative Hep B Core IgM Ab Negative Hepatitis C Antibody Negative HIV 1&2 Antibody Screen Negative Influenza Typ A,B (EIA) Assessment & Plan (1) Gait instability Assessment and Plan: This appears to be intermittent and likely related to dehydration and metabolic causes. Currently, the patient has a non focal exam, and MRI of the brain did not show any posterior circulation involvement. Continue medical management. Status: Acute (2) Vertigo Assessment and Plan: She describes it more as light-headedness and does not seem to be causing the patient discomfort at this time. Status: Acute (3) CVA (cerebral vascular accident) Assessment and Plan: This appears to be chronic. I recommend secondary stroke prevention with aspirin, statin, BP control and risk factor modification. Status: Acute
[2018-05-06 15:47] VITALS: PULSE 63
[2018-05-06 16:07] VITALS: BP 150/73; TEMP 99.2
--- NOTE | 2018-05-07 12:07 | CARD ---
APPROVED REPORT Date of service: 05/04/2018 EKG Measurement Heart [id number] <Conclusion> Sinus tachycardia Left ventricular hypertrophy with repolarization abnormality Abnormal ECG
== END 2018-05-06 21:27 | disposition home or self-care (01) ==
LOC: C.ER 17:08 → C.9E 20:45 → C.6T 21:22
PROVIDERS: ADMIT Hospitalist; ATTEND Hospitalist
DX: E86.0 Dehydration (principal); R07.89 Other chest pain; E11.22 Type 2 diabetes mellitus with diabetic chronic kidney disease; E78.5 Hyperlipidemia, unspecified; I13.0 Hypertensive heart and chronic kidney disease with heart failure and stage 1 through stage 4 chronic kidney disease, or unspecified chronic kidney disease; I50.9 Heart failure, unspecified; N18.9 Chronic kidney disease, unspecified; Z87.891 Personal history of nicotine dependence; G93.89 Other specified disorders of brain
CPT/HCPCS: 36415; 70450; 70551; 71045; 80053; 80061; 80074; 81001; 82306; 82607; 82746; 82948; 83036; 83690; 83735; 83880; 84100; 84439; 84443; 84484; 85025; 85378; 86703; 86780; 87045; 87177; 87209; 87230; 87804; 89055; 90471; 90674; 90732; 93005; 93880; 96372; 97162; 97166; 97530; 99285; G0378; G8978; G8979; G8987; G8988; J1644; J7030